=== PATIENT | female | born 1990 | race African-American/Black ===

== ENCOUNTER 2021-04-09 23:27 | Emergency (ER) | payer MEDICAID, OTHER | END 2021-04-10 00:22 | disposition left against medical advice (07) | LOC: EMS 23:31 | DX: R19.7 Diarrhea, unspecified (principal); Z53.21 Procedure and treatment not carried out due to patient leaving prior to being seen by health care provider ==

== ENCOUNTER 2021-11-10 14:06 | Emergency (ER) | payer MEDICAID ==
[~2021-11-10] VITALS: Ht 154.9 cm; Wt 100.0 kg
[2021-11-10 14:10] VITALS: BP 108/86
== END 2021-11-10 15:00 | disposition home or self-care (01) ==
LOC: EMS 14:06
DX: H57.89 Other specified disorders of eye and adnexa (principal); F12.90 Cannabis use, unspecified, uncomplicated
CPT/HCPCS: 99281; Z7502

== ENCOUNTER 2022-01-28 21:30 | Emergency (ER) | payer MEDICAID ==
[~2022-01-28] VITALS: Ht 154.9 cm; Wt 100.0 kg
[2022-01-28 21:56] VITALS: BP 126/66
[2022-01-28] MEDS ORDERED: FAMOTIDINE 10 MG/ML 2 ML VIAL IVP ONE (22:30)
[2022-01-28] MEDS ORDERED: SODIUM CHLORIDE 0.9% 1,000 ML IV ONE (22:30)
[2022-01-28] MEDS ORDERED: ONDANSETRON HCL 4 MG/2 ML VIAL IVP ONE (22:30)
[2022-01-28 23:36] LABS: COVID AG,FIA SOURCE NASOPHARYNGEAL
== END 2022-01-28 23:53 | disposition home or self-care (01) ==
LOC: EMS 21:31
DX: R19.7 Diarrhea, unspecified (principal); E05.00 Thyrotoxicosis with diffuse goiter without thyrotoxic crisis or storm; F12.90 Cannabis use, unspecified, uncomplicated; K58.9 Irritable bowel syndrome, unspecified; Z20.822 Contact with and (suspected) exposure to COVID-19
CPT/HCPCS: 87426; 99283; C9803

== ENCOUNTER 2022-12-24 11:00 | Emergency (ER) | payer MEDICAID ==
[~2022-12-24] VITALS: Ht 154.9 cm; Wt 86.8 kg
[2022-12-24 12:27] LABS: BASOPHILS % (AUTO) 0.3 % (0.0-2.0); HEMATOCRIT 35.3 % (36-46); HEMOGLOBIN 11.5 g/dL (12.0-16.0); LYMPHOCYTES # (AUTO) 2.3 K/uL (1.0-4.8); LYMPHOCYTES % (AUTO) 26.6 % (22.0-44.0); MEAN CORPUSCULAR HEMOGLOBIN 26.6 pg (26.0-34.0); MEAN CORPUSCULAR HGB CONC 32.5 G/dL (31.0-37.0); MEAN CORPUSCULAR VOLUME 82 fL (80-100); MONOCYTES # (AUTO) 0.7 K/uL (0.1-1.0); MONOCYTES % (AUTO) 7.7 % (2.0-9.0); NEUTROPHILS # (AUTO) 5.3 K/uL (1.8-7.7); NEUTROPHILS % (AUTO) 62.4 % (40.0-70.0); PLATELET COUNT (AUTO) 267 K/uL (150-450); RED CELL DISTRIBUTION WIDTH 14.4 % (11.5-14.5)
[2022-12-24 12:37] LABS: ANION GAP 5 mmol/L (8-16); CALCIUM, TOTAL 8.9 mg/dL (8.8-10.5); CARBON DIOXIDE 30 mmol/L (22-29); CHLORIDE 106 mmol/L (98-107); CREATININE 0.52 mg/dL (0.60-1.30); GLOMERULAR FILTR. RATE CALC > 60 mL/min (>60); GLUCOSE,RANDOM 89 mg/dL (70-110); POTASSIUM 4.2 mmol/L (3.5-5.1); SODIUM SERUM 141 mmol/L (136-145)
[2022-12-24 12:52] LABS: ALANINE AMINOTRANSFERASE 18 U/L (12-78); ALBUMIN 3.2 g/dL (3.4-5.0); ALKALINE PHOSPHATASE 90 U/L (46-116); ASPARTATE AMINOTRANSFERASE 16 U/L (15-37); BILIRUBIN,TOTAL 0.3 mg/dL (0.1-1.0)
[2022-12-24 13:15] LABS: THYROID STIMULATING HORMONE < 0.01 uIU/mL (0.36-3.74)
[2022-12-24] MEDS ORDERED: MEDR5TAB5 PO (14:32)
[2022-12-24 14:41] VITALS: BP 133/81
== END 2022-12-24 13:30 | disposition home or self-care (01) ==
LOC: EMS 11:32
DX: N93.9 Abnormal uterine and vaginal bleeding, unspecified (principal); F12.90 Cannabis use, unspecified, uncomplicated
CPT/HCPCS: 76856; 80053; 84443; 84703; 85025; 99284

== ENCOUNTER 2023-04-09 08:25 | Emergency (ER) | payer MEDICAID ==
[~2023-04-09] VITALS: Ht 154.9 cm; Wt 84.1 kg
[~2023-04-09 08:25] MED LIST: ACET-2080 PO; IBUP-1554 PO; MEDR5TAB5 PO; PENI500T2 PO
[2023-04-09 08:26] VITALS: TEMP 98.4
[2023-04-09 08:41] LABS: COVID AG,FIA SOURCE NASAL SWAB
[2023-04-09 09:19] LABS: INFLUENZA TYPE A NEGATIVE FOR TYPE A (NEGATIVE); INFLUENZA TYPE B NEGATIVE FOR TYPE B (NEGATIVE)
[2023-04-09 09:20] LABS: SARS-COV2 (COVID) ANTIGEN,FIA Negative (Negative)
[2023-04-09] MEDS ORDERED: ALBUTEROL SULFATE 2.5 MG/0.5 ML NEB SOLUTION NEB ONE (10:15)
[2023-04-09] MEDS ORDERED: IPRATROPIUM BROMIDE 0.5 MG/2.5 ML NEB SOLUTION NEB ONE (10:15)
[2023-04-09] MEDS ORDERED: PredniSONE 20 MG TABLET PO ONE (10:15)
[2023-04-09 12:07] VITALS: BP 128/72; PULSE 99; RESP 18
[2023-04-09] MEDS ORDERED: ALBU18HF12 IH (12:33)
[2023-04-09] MEDS ORDERED: PRED-554 PO (12:33)
== END 2023-04-09 13:14 | disposition home or self-care (01) ==
LOC: EMS 08:32
DX: J45.909 Unspecified asthma, uncomplicated (principal); E05.90 Thyrotoxicosis, unspecified without thyrotoxic crisis or storm; F12.90 Cannabis use, unspecified, uncomplicated; Z20.822 Contact with and (suspected) exposure to COVID-19
CPT/HCPCS: 99284; 96360; 71045; 87426; 87804; 94640; 81025; J7512; J7030; J7613

== ENCOUNTER 2023-04-17 02:55 | Emergency (ER) | payer MEDICAID ==
[~2023-04-17] VITALS: Ht 154.9 cm; Wt 84.1 kg
[~2023-04-17 02:55] MED LIST changes: -ACET-2080 PO; +ALBU18HF12 IH; -IBUP-1554 PO; -MEDR5TAB5 PO; -PENI500T2 PO; +PRED-554 PO
[2023-04-17 02:59] VITALS: BP 128/82; PULSE 78; RESP 13; TEMP 98.8
== END 2023-04-17 05:08 | disposition home or self-care (01) ==
LOC: EMS 02:56
DX: J06.9 Acute upper respiratory infection, unspecified (principal); E05.90 Thyrotoxicosis, unspecified without thyrotoxic crisis or storm; E05.00 Thyrotoxicosis with diffuse goiter without thyrotoxic crisis or storm; F12.90 Cannabis use, unspecified, uncomplicated
CPT/HCPCS: 71045; 99283

== ENCOUNTER 2023-10-16 04:07 | Emergency (ER) | payer MEDICAID ==
[~2023-10-16] VITALS: Ht 154.9 cm; Wt 86.0 kg
[2023-10-16 06:56] LABS: BASOPHILS % (AUTO) 0.6 % (0.0-2.0); EOSINOPHILS % (AUTO) 2.6 % (1.0-6.0); HEMATOCRIT 36.2 % (36-46); HEMOGLOBIN 12.2 g/dL (12.0-16.0); LYMPHOCYTES # (AUTO) 2.2 K/uL (1.0-4.8); LYMPHOCYTES % (AUTO) 25.2 % (22.0-44.0); MEAN CORPUSCULAR HGB CONC 33.8 G/dL (31.0-37.0); MEAN CORPUSCULAR VOLUME 86 fL (80-100); MONOCYTES # (AUTO) 0.5 K/uL (0.1-1.0); MONOCYTES % (AUTO) 6.1 % (2.0-9.0); NEUTROPHILS # (AUTO) 5.7 K/uL (1.8-7.7); NEUTROPHILS % (AUTO) 65.5 % (40.0-70.0); PLATELET COUNT (AUTO) 248 K/uL (150-450); RED BLOOD CELL COUNT(AUTO) 4.22 MIL/uL (4.00-5.20); RED CELL DISTRIBUTION WIDTH 14.1 % (11.5-14.5); WHITE BLOOD COUNT (AUTO) 8.8 K/uL (4.5-11.0)
[2023-10-16] MEDS: IBUPROFEN 600 MG TABLET PO ONE (07:01)
[2023-10-16 07:07] LABS: ERYTHROCYTE SEDIMENTATION RATE 10 MM/HR (0-20)
[2023-10-16 07:10] LABS: ANION GAP 6 mmol/L (8-16); CALCIUM, TOTAL 9.1 mg/dL (8.8-10.5); CARBON DIOXIDE 29 mmol/L (22-29); CHLORIDE 103 mmol/L (98-107); CREATININE 0.56 mg/dL (0.60-1.30); GLOMERULAR FILTR. RATE CALC > 60 mL/min (>60); GLUCOSE,RANDOM 91 mg/dL (70-110); POTASSIUM 4.1 mmol/L (3.5-5.1); SODIUM SERUM 138 mmol/L (136-145); UREA NITROGEN, BLOOD 12 mg/dL (7-18)
[2023-10-16 07:13] VITALS: BP 129/75; PULSE 65; RESP 18; TEMP 98.3
[2023-10-16 07:15] LABS: ALANINE AMINOTRANSFERASE 15 U/L (12-78); ALBUMIN 3.4 g/dL (3.4-5.0); ALKALINE PHOSPHATASE 81 U/L (46-116); ASPARTATE AMINOTRANSFERASE 12 U/L (15-37); BILIRUBIN,TOTAL 0.5 mg/dL (0.1-1.0); C-REACTIVE PROTEIN QUANT 0.54 mg/dL (0.00-0.30); TOTAL PROTEIN, SERUM 7.3 g/dL (6.4-8.2)
[2023-10-16 07:29] LABS: URIC ACID 3.3 mg/dL (2.6-7.2)
== END 2023-10-16 07:31 | disposition left against medical advice (07) ==
LOC: EMS 04:09
DX: M25.521 Pain in right elbow (principal); M19.90 Unspecified osteoarthritis, unspecified site; E05.90 Thyrotoxicosis, unspecified without thyrotoxic crisis or storm; F12.90 Cannabis use, unspecified, uncomplicated
CPT/HCPCS: 80053; 84550; 85025; 85651; 86140; 87040; 99284

== ENCOUNTER 2025-05-09 01:34 | Emergency (ER) | payer BC, MEDICAID ==
[~2025-05-09] VITALS: Ht 154.9 cm; Wt 81.8 kg
[2025-05-09 02:10] LABS: PLATELET COUNT (AUTO) 370 K/uL (150-450); RED BLOOD CELL COUNT(AUTO) 4.67 MIL/uL (4.00-5.20); RED CELL DISTRIBUTION WIDTH 14.7 % (11.5-14.5); WHITE BLOOD COUNT (AUTO) 9.6 K/uL (4.5-11.0)
[2025-05-09 02:17] LABS: CALCIUM, TOTAL 8.6 mg/dL (8.8-10.5); CREATININE 0.55 mg/dL (0.60-1.30); GLOMERULAR FILTR. RATE CALC > 60 mL/min (>60); GLUCOSE,RANDOM 88 mg/dL (70-110); SODIUM SERUM 137 mmol/L (136-145); UREA NITROGEN, BLOOD 8 mg/dL (7-18)
[2025-05-09 02:28] LABS: HCG,QUANTITATIVE < 1 mIU/mL (0-6)
[2025-05-09] MEDS: POTASSIUM CHLORIDE 20 MEQ ER TABLET PO ONE (05:07)
[2025-05-09] MEDS: SODIUM CHLORIDE 0.9% 1,000 ML IV ONE (05:07)
[2025-05-09] MEDS: KETOROLAC TROMETHAMINE 30 MG/ML VIAL IVP ONE (05:07)
[2025-05-09] MEDS: ONDANSETRON HCL 4 MG/2 ML VIAL IVP ONE (05:08)
[2025-05-09 05:23] VITALS: TEMP 98.6
[2025-05-09] MEDS ORDERED: [UNRECOGNIZED DRUG - OTHER] TP (05:23)
[2025-05-09] MEDS ORDERED: DIPH-1130 PO (05:23)
[2025-05-09] MEDS ORDERED: ONDA-104 PO (05:23)
[2025-05-09 05:26] LABS: ASPARTATE AMINOTRANSFERASE 10.0 U/L (15-37); TOTAL PROTEIN, SERUM 7.6 g/dL (6.4-8.2)
[2025-05-09 06:30] VITALS: BP 110/70; PULSE 75; RESP 18; O2SAT 99
== END 2025-05-09 07:45 | disposition home or self-care (01) ==
LOC: EMS 01:35
DX: A08.4 Viral intestinal infection, unspecified (principal); R11.2 Nausea with vomiting, unspecified; R19.7 Diarrhea, unspecified; R10.84 Generalized abdominal pain; F12.90 Cannabis use, unspecified, uncomplicated; N89.8 Other specified noninflammatory disorders of vagina; M19.90 Unspecified osteoarthritis, unspecified site; Z90.89 Acquired absence of other organs; Z79.52 Long term (current) use of systemic steroids
CPT/HCPCS: 99285; 96374; 76700; 96375; 80048; 80076; 83690; 84702; 85025; 36415; J1885; J2405; J7030